=== PATIENT | female | born 2000 | race Caucasian/White ===

== ENCOUNTER 2019-03-15 12:12 | Emergency (ER) | payer BC ==
[2019-03-15 15:20] LABS: Urine Appearance Cloudy; Urine Bilirubin Negative (Negative); Urine Blood Negative (Negative); Urine Color Yellow; Urine Glucose Negative (Negative); Urine Ketones Trace (Negative); Urine Nitrite Negative (Negative); Urine Protein Negative (Negative); Urine Specific Gravity 1.006 (1.010-1.030); Urine Urobilinogen Negative (Negative)
[2019-03-15 15:55] LABS: ABS Basophils 0.1 10^3/ul (0-0.2); ABS Eosinophils 0.1 10^3/ul (0-0.6); ABS Lymphocytes 1.8 10^3/ul (1.0-4.8); ABS Monocytes 0.4 10^3/ul (0-0.8); ABS Neutrophils 5.5 10^3/ul (1.5-7.7); Eosinophil % 0.7 %; Hematocrit 42 % (35-47); Hemoglobin 13.9 g/dL (12.0-16.0); Lymphocyte % 23.2 %; Mean Corpuscular HGB Conc 33 g/dL (31-36); Mean Corpuscular Hemoglobin 29 pg (27-31); Mean Corpuscular Volume 86 fL (80-97); Mean Platelet Volume 8.5 fL (7.4-10.4); Nucleated Red Blood Cells % 0.1; Platelet Count 287 10^3/uL (150-450); Red Blood Count 4.87 10^6 /uL (3.70-4.87); Red Cell Distribution Width 13 % (10-15); White Blood Count 7.7 10^3/uL (3.5-10.8)
[2019-03-15 16:19] LABS: HCG Pregnancy < 0.60 mIU/mL
[2019-03-15] MEDS ORDERED: NS 0.9% 1000 ML** 1,000 ML IV ONE (16:27)
--- NOTE | 2019-03-15 16:30 | ED ---
Complex/Multi-Sys Presentation - HPI Summary HPI Summary: 19 year old F presenting to [facility] from [facility] accompanied by male friend with a chief complaint of losing consciousness while stepping out of shower this morning. Symptoms aggravated by nothing. Symptoms alleviated by nothing. Patient denies nausea, diarrhea, constipation, fever, headache, sore throat, ear pain. Patient states that as she stepped outside her shower, her vision went black, her ears started ringing, and she fainted then woke up on the bathroom floor. Patient states she got sunburnt yesterday. Patient states she fainted 6 years ago due to hx eating disorder. LNMP 03/07/19. - History Of Current Complaint Chief Complaint: EDDizziness Time Seen by Provider: 03/15/19 16:20 Hx Obtained From: Patient Onset/Duration: Sudden Onset, Resolved Timing: Constant Aggravating Factor(s): Nothing Alleviating Factor(s): Nothing Associated Signs And Symptoms: Positive: Other - NEGATIVE: nausea, diarrhea, constipation, fever, headache, sore throat, ear pain - Allergies/Home Medications Allergies/Adverse Reactions: Allergies Allergy/AdvReac Type Severity Reaction Status Date / Time No Known Allergies Allergy Verified 03/15/19 12:28 Home Medications: Home Medications NK [No Home Medications Reported] 03/15/19 [History Confirmed 03/15/19] PMH/Surg Hx/FS Hx/Imm Hx Previously Healthy: No Endocrine/Hematology History: Denies: Hx Diabetes Respiratory History: Denies: Hx Asthma Psychiatric History: Reports: Hx Eating Disorder - Surgical History Surgery Procedure, Year, and Place: none Infectious Disease History: No Infectious Disease History: Denies: Traveled Outside the [place] in Last 30 Days - Family History Known Family History: Positive: Other - stroke, cancer, hypercholesterolemia - Social History Alcohol Use: Occasionally Hx Substance Use: No Substance Use Type: Reports: None Hx Tobacco Use: No Smoking Status (MU): Never Smoked Tobacco Review of Systems Negative: Fever Negative: Sore Throat, Ear Ache Gastrointestinal: Negative - constipation Negative: Diarrhea, Nausea Neurological: Other - LOC Negative: Headache All Other Systems Reviewed And Are Negative: Yes Physical Exam - Summary Physical Exam Summary: VITAL SIGNS: Reviewed. GENERAL: Patient is a well-developed and nourished FEMALE who is lying comfortable in the stretcher. Patient is not in any acute respiratory distress. HEAD AND FACE: No signs of trauma. No ecchymosis, hematomas or skull depressions. No sinus tenderness. EYES: PERRLA, EOMI x 2, No injected conjunctiva, no nystagmus. EARS: Hearing grossly intact. Ear canals and tympanic membranes are within normal limits. MOUTH: Oropharynx within normal limits. NECK: Supple, trachea is midline, no adenopathy, no JVD, no carotid bruit, no c- spine tenderness, neck with full ROM. CHEST: Symmetric, no tenderness at palpation LUNGS: Clear to auscultation bilaterally. No wheezing or crackles. CVS: Regular rate and rhythm, S1 and S2 present, no murmurs or gallops appreciated. ABDOMEN: Soft, non-tender. No signs of distention. No rebound no guarding, and no masses palpated. Bowel sounds are normal. EXTREMITIES: FROM in all major joints, no edema, no cyanosis or clubbing. NEURO: Alert and oriented x 3. No acute neurological deficits. Speech is normal and follows commands. SKIN: Dry and warm. Triage Information Reviewed: Yes Vital Signs On Initial Exam: Initial Vitals Temp Pulse Resp BP Pulse Ox 98.8 F 82 16 128/93 100 03/15/19 12:25 03/15/19 12:25 03/15/19 12:25 03/15/19 12:25 03/15/19 12:25 Vital Signs Reviewed: Yes Diagnostics - Vital Signs Vital Signs Temp Pulse Resp BP Pulse Ox 03/15/19 14:10 99.3 F 71 20 114/70 100 03/15/19 12:25 98.8 F 82 16 128/93 100 - Laboratory Lab Results: Lab Results 03/15/19 03/15/19 03/15/19 Range/Units 15:06 15:46 15:46 WBC 7.7 (3.5-10.8) 10^3/uL RBC 4.87 (3.70-4.87) 10^6 /uL Hgb 13.9 (12.0-16.0) g/dL Hct 42 (35-47) % MCV 86 (80-97) fL MCH 29 (27-31) pg MCHC 33 (31-36) g/dL RDW 13 (10-15) % Plt Count 287 (150-450) 10^3/uL MPV 8.5 (7.4-10.4) fL Neut % (Auto) 70.7 % Lymph % (Auto) 23.2 % [place] % (Auto) 4.7 % Eos % (Auto) 0.7 % Baso % (Auto) 0.7 % Absolute Neuts (auto) 5.5 (1.5-7.7) 10^3/ul Absolute Lymphs (auto) 1.8 (1.0-4.8) 10^3/ul Absolute Monos (auto) 0.4 (0-0.8) 10^3/ul Absolute Eos (auto) 0.1 (0-0.6) 10^3/ul Absolute Basos (auto) 0.1 (0-0.2) 10^3/ul Absolute Nucleated RBC 0.0 10^3/ul Nucleated RBC % 0.1 Sodium Pending Potassium Pending Chloride Pending Carbon Dioxide Pending Anion Gap Pending BUN Pending Creatinine Pending Est GFR ( Amer) Pending Est GFR (Non-Af Amer) Pending BUN/Creatinine Ratio Pending Glucose Pending Calcium Pending Total Bilirubin Pending AST Pending ALT Pending Alkaline Phosphatase Pending Total Protein Pending Albumin Pending Globulin Pending Albumin/Globulin Ratio Pending Beta HCG, Quant < 0.60 mIU/mL Urine Color Yellow Urine Appearance Cloudy Urine pH 6.0 (5-9) Ur Specific [place] 1.006 L (1.010-1.030) Urine Protein Negative (Negative) Urine Ketones Trace A (Negative) Urine Blood Negative (Negative) Urine Nitrate Negative (Negative) Urine Bilirubin Negative (Negative) Urine Urobilinogen Negative (Negative) Ur Leukocyte Esterase Negative (Negative) Urine Glucose Negative (Negative) Result Diagrams: 03/15/19 15:46 03/15/19 15:46 Lab Statement: Any lab studies that have been ordered have been reviewed, and results considered in the medical decision making process. - EKG 1812 Cardiac Rate: NL - 81 BPM EKG Rhythm: Sinus Rhythm Summary of EKG Findings: Sinus rhythm [address] elevations Complex Multi-Symp Course/Dx Assessment/Plan: 19 year old F presenting to [facility] from [facility] accompanied by male friend with a chief complaint of losing consciousness while stepping out of shower this morning. Symptoms aggravated by nothing. Symptoms alleviated by nothing. Patient denies nausea, diarrhea, constipation, fever, headache, sore throat, ear pain. Patient states that as she stepped outside her shower, her vision went black, her ears started ringing, and she fainted then woke up on the bathroom floor. Patient states she got sunburnt yesterday. Patient states she fainted 6 years ago due to hx eating disorder. LNMP 03/07/19. Blood work without any significant abnormality except for calcium 10.5, total bili 1.3. Urinalysis is negative for UTI. In the ED course the patient was given IV fluids and the symptoms have subsided. At this point the patient is feeling better, she is hemodynamically stable. The EKG shows a normal sinus rhythm without ST elevation. The patient reports that she was outside under sun all day yesterday and this morning she had a syncopal episodes therefore I believe that the patient had a dehydration episode. At this point after hydration the patient is feeling a lot better patient is hemodynamically stable alert and oriented 3. I discussed all the findings and test results with the patient. Patient was instructed to return to the emergency room immediately if any of the symptoms return worsens. Plan of care was discussed with the patient and she understands and agrees. All questions were answered at patient satisfaction. There were no further complaints or concerns. Lung exam before discharge: CTA B/L. Good air exchange. No wheezing or crackles heard. CVS: S1 and S2 present. No murmurs appreciated. Patient is alert and oriented x 3. Patient is hemodynamically stable. Patient will be discharged home with follow up PCP in the next 2-3 days - Diagnoses Provider Diagnoses: Vasovagal episode Discharge - Sign-Out/Discharge Documenting (check all that apply): Patient Departure - Discharge Patient Received Moderate/Deep Sedation with Procedure: No - Discharge Plan Condition: Stable Disposition: HOME Patient Education Materials: Syncope (ED) Referrals: [facility] [place] PHYSICIAN REFERRAL [Outside] - 3 Days Additional Instructions: Follow up with primary care provider in 3 days. Return to the Emergency Department for new or worsening symptoms. - Billing Disposition and Condition Condition: STABLE Disposition: Home - Attestation Statements Document Initiated by Scribe: Yes Documenting Scribe: Gillian White Provider For Whom Scribe is Documenting (Include Credential): Donald Mayer MD Scribe Attestation: Gillian Dillard, scribed for Donald Mayer MD on 03/16/19 at 2118. Scribe Documentation Reviewed: Yes Provider Attestation: The documentation as recorded by the scribe, Gillian White accurately reflects the service I personally performed and the decisions made by me, Donald Mayer MD Status of Scribe Document: Viewed
[2019-03-15 16:33] LABS: ALT 13 U/L (7-52); AST 25 U/L (13-39); Albumin 4.6 g/dL (3.2-5.2); Albumin/Globulin Ratio 1.3 (1-3); Alkaline Phosphatase 55 U/L (34-104); Anion Gap 9 mmol/L (2-11); BUN/Creatinine Ratio 14.3 (8-20); Blood Urea Nitrogen 10 mg/dL (6-24); CO2 Carbon Dioxide 24 mmol/L (22-32); Calcium 10.5 mg/dL (8.6-10.3); Chloride 105 mmol/L (101-111); EGFR African American 129.1 (>60); EGFR Non-African American 106.7 (>60); Globulin 3.6 g/dL (2-4); Glucose 91 mg/dL (70-100); Potassium 4.3 mmol/L (3.5-5.0); Sodium 138 mmol/L (135-145); Total Protein 8.2 g/dL (6.4-8.9)
[2019-03-15 18:29] VITALS: BP 118/77
== END 2019-03-15 18:28 | disposition home or self-care (01) ==
LOC: ED 12:12
DX: R55 Syncope and collapse (principal)
CPT/HCPCS: 36415; 80053; 81003; 84702; 85025; 93005; 96360; 99282